=== PATIENT | female | born 1950 | race Caucasian/White ===

== ENCOUNTER → 2018-05-10 | Outpatient (CLI) | payer BC, MEDICARE ==
[~2018-05-10] MED LIST: ALLO300T PO; AMLO10TA8 PO; ASPI325T8 PO; CRESTOR40 MG PO; DIGO125T PO; FURO40TA4 PO; IOHEXOL 180 MG/ML 10 ML VIAL. ONE; LOSA1TAB22 PO; METF500T16 PO; METO50TA6 PO; NAPR500T8 PO; methylPREDNISolone ACETATE 40 MG/ML VIAL. ONE; methylPREDNISolone ACETATE 80 MG/ML VIAL. ONE
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
== END | disposition home or self-care (01) ==
LOC: PNCL 10:30
PROVIDERS: ATTEND Anesthesiology
DX: M51.16 Intervertebral disc disorders with radiculopathy, lumbar region (principal); M48.061 Spinal stenosis, lumbar region without neurogenic claudication; I10 Essential (primary) hypertension; E11.9 Type 2 diabetes mellitus without complications; M19.90 Unspecified osteoarthritis, unspecified site; Z87.891 Personal history of nicotine dependence; I25.10 Atherosclerotic heart disease of native coronary artery without angina pectoris; E66.9 Obesity, unspecified; Z95.1 Presence of aortocoronary bypass graft; Z79.82 Long term (current) use of aspirin; Z79.899 Other long term (current) drug therapy; Z79.84 Long term (current) use of oral hypoglycemic drugs; Z83.3 Family history of diabetes mellitus; Z82.49 Family history of ischemic heart disease and other diseases of the circulatory system; Z72.89 Other problems related to lifestyle
CPT/HCPCS: 62323; J1030; J1040; Q9965

== ENCOUNTER → 2018-05-24 | Outpatient (CLI) | payer BC, MEDICARE ==
--- NOTE | 2018-05-25 05:06 | PAIN ---
DATE OF SERVICE: 05/24/2018 DIAGNOSES: Lumbar radiculopathy with lumbar degenerative disk disease, lumbar spinal stenosis. HISTORY OF PRESENT ILLNESS: The patient is a 68-year-old female who returns for followup status post lumbar epidural steroid injection x 1. The patient reports she had 65% improvement in the low back and right lower extremity pain. The patient reports that she was doing quite well, was becoming more active, increased activity, distance walking, greater activities at home and traveling. She did fall about 3 days ago after the injection rather, which tended to increase the pain in the low back and right leg, but only to a moderate extent. The patient reports it still doing quite well, still about 65% improved overall. The patient has been sleeping better at night, does not awaken her from sleep as often, but still does on occasion. The patient reports it is radiating pain, dull, tight, sharp, shooting in the low back, some aching and cramping as well. The patient reports it is a 5 on a scale of 10 at its worst, 3 on average, 1 at its least and is a 3 today. The patient reports no new motor or sensory deficits, no new bowel or bladder incontinence or other complaints. PHYSICAL EXAMINATION: VITAL SIGNS: Blood pressure 136/65, pulse 65, respirations 16, temperature 97.7 degrees Fahrenheit, weight is 233 pounds. GENERAL: The patient is awake, alert, oriented, appropriate, very pleasant demeanor. The patient is accompanied by her daughter. HEENT: Head shows normocephalic, atraumatic. Extraocular muscles are intact and symmetrical. Oral cavity: Mucous membranes moist and pink. Dentition is intact. NECK: Shows anterior throat supple without palpable lymphadenopathy noted. Swallow reflex is symmetrical. CHEST: Shows normal on inspection. Breath sounds clear to auscultation bilaterally. HEART: Shows S1, S2 clear. No murmurs auscultated. ABDOMEN: Soft, nontender, nondistended. No palpable organomegaly is noted. No rebound or guarding demonstrated. BACK: Shows spine grossly in the midline. Slight exaggeration of thoracic kyphosis, some minor flattening of lumbar lordotic curvature. Lumbar paraspinous muscle shows symmetrical on inspection, on palpation shows some moderate tenderness but only very diffusely in the lower lumbar distribution without any radiation. The patient has good rotational motion of lumbar spine, both laterally as well as extension and flexion without difficulty. EXTREMITIES: Lower extremities show deep tendon reflexes 2+ in the patellar, 1+ tendo-calcaneus tendons are equal. Motor exam is strong with 5/5 dorsiflexion, extension and symmetrical. Peripheral pulses are 1+ posterior tibial. No peripheral edema is noted bilaterally. Options were discussed with the patient. The patient's old chart was reviewed as her current medication regimen updated. Current review of systems updated today as well. We will proceed with a second in the series of lumbar epidural steroid injection today with fluoroscopic guidance. Risks were again discussed including, but not limited to bleeding, infection, possibility of epidural hematoma, subsequent neurologic compromise, dural puncture, headaches, spinal cord and/or nerve damage, side effects of steroid medication and poor results regarding pain control. The patient understands and wished to proceed. The patient to return to clinic in approximately 2 weeks for followup. She was counseled as to return appointment, activity level and side effects to be aware of. DIAGNOSES: Lumbar radiculopathy with lumbar degenerative disk disease, lumbar spinal stenosis. PROCEDURE: Lumbar epidural steroid injection, translaminar approach L4-L5 level, using C-arm fluoroscopic guidance under sterile prep and drape using local anesthetic. MEDICATION INJECTED: A total of 120 mg Depo-Medrol plus 10 mL of preservative-free normal saline and 2 mL of contrast. CONDITION AT DISCHARGE: Stable. The patient tolerated procedure well, had no complications. NYA LOPEZ MD DR: VANESSA/teena JOB#: [id number] / [id number]
== END | disposition home or self-care (01) ==
LOC: PNCL 10:33
PROVIDERS: ATTEND Anesthesiology
DX: M51.16 Intervertebral disc disorders with radiculopathy, lumbar region (principal); M48.061 Spinal stenosis, lumbar region without neurogenic claudication
CPT/HCPCS: 62323; J1030; J1040; Q9965